=== PATIENT | male | born 1985 | race Caucasian/White ===

== ENCOUNTER 2016-08-14 18:39 | Emergency (ER) | payer SELFPAY ==
--- NOTE | 2016-08-14 18:49 | PDOC ---
Rapid Medical Evaluation Chief Complaint: Urinary Problem Time Seen by Provider: 08/14/16 18:47 Medical Evaluation: Allergies Allergy/AdvReac Type Severity Reaction Status Date / Time No Known Allergies Allergy Verified 08/14/16 18:47 08/14/16 18:48 I have performed a brief in-person evaluation of this patient. The patient presents with a chief complaint of:2 days difficulty urinating, lower abd pain ,urgency and frequency Pertinent physical exam findings:lower abd pain left side I have ordered the following:UA, The patient will proceed to the ED for further evaluation.
[2016-08-14 18:53] VITALS: BP 143/74; PULSE 74; TEMP 98.2; BMI 28.7
[2016-08-14 20:37] LABS: URINE APPEARANCE CLOUDY; URINE BILIRUBIN NEGATIVE (NEGATIVE); URINE BLOOD NEGATIVE (NEGATIVE); URINE COLOR YELLOW; URINE GLUCOSE (UA) NEGATIVE (NEGATIVE); URINE KETONE NEGATIVE (NEGATIVE); URINE LEUK ESTERASE NEGATIVE (NEGATIVE); URINE NITRITE NEGATIVE (NEGATIVE); URINE PROTEIN NEGATIVE (NEGATIVE); URINE UROBILINOGEN NEGATIVE E.U./dl (0.2-1.0)
--- NOTE | 2016-08-14 20:44 | PDOC ---
History of Present Illness - General Chief Complaint: Urinary Problem Stated Complaint: URINARY PROBLEM Time Seen by Provider: 08/14/16 18:47 - History of Present Illness Initial Comments: 08/14/16 20:41 CHIEF COMPLAINT: HISTORY OF PRESENT ILLNESS: No recent travel or sick contacts. PAST MEDICAL HISTORY: Denies past medical history FAMILY HISTORY: Denies SOCIAL HISTORY: Lives at home with ____. Occupation: . Denies tobacco, alcohol, illicit drug use. SURGICAL HISTORY: Denies ALLERGIES: No known drug allergies REVIEW OF SYSTEMS General/Constitutional: Denies fever or chills. Denies weakness, weight change. HEENT: Denies change in vision. Denies ear pain or discharge. Denies sore throat. Cardiovascular: Denies chest pain or shortness of breath. Respiratory: Denies cough, wheezing, or hemoptysis. Gastrointestinal: Denies nausea, vomiting, diarrhea or constipation. Denies rectal bleeding. Genitourinary: Denies dysuria, frequency, or change in urination. Musculoskeletal: Denies joint or muscle swelling or pain. Denies neck or back pain. Skin and breasts: Denies rash or easy bruising. Neurologic: Denies headache, vertigo, loss of consciousness, or loss of sensation. Psychiatric: Denies depression or anxiety. Endocrine: Denies increased thirst. Denies abnormal weight change. Hematologic/Lymphatic: Denies anemia, easy bleeding, or history of blood clots. Allergic/Immunologic: Denies hives or skin allergy. Denies latex allergy. PHYSICAL EXAM General Appearance: Well-appearing, appropriately dressed. No apparent distress , no intoxication. HEENT: EOMI, PERRLA, normal ENT inspection, normal voice, TMs normal, pharynx normal. No conjunctival pallor. No photophobia, scleral icterus. Neck: Supple. Trachea midline. No tenderness, rigidity, carotid bruit, stridor , lymphadenopathy, or thyromegaly. Respiratory/Chest: Lungs CTAB. No shortness of breath, chest tenderness, respiratory distress, accessory muscle use. No crackles, rales, rhonchi, stridor , wheezing, dullness Cardiovascular: RRR. S1, S2. No JVD, murmur, bradycardia, tachycardia. Vascular Pulses: Dorsalis-Pedis (R): 2+, Dorsalis-Pedis (L): 2+ Gastrointestinal/Abdominal: Normal bowel sounds. Abdomen soft, non-distended. No tenderness or rebound tenderness. No organomegaly, pulsatile mass, guarding , hernia, hepatomegaly, splenomegaly. Lymphatic: No adenopathy, tenderness. Musculoskeletal/Extremities: Normal inspection. FROM of all extremities, normal capillary refill. Pelvis Stable. No CVA tenderness. No tenderness to extremities, pedal edema, swelling, erythema or deformity. Integumentary: Appropriate color, dry, warm. No cyanosis, erythema, jaundice or rash Neurologic: paper machine back tender II-XII intact. Fully oriented, alert. Appropriate mood/affect. Motor strength 5/5. No appreciable EOM palsy, facial droop or sensory deficit. Past History - Past Medical History Allergies/Adverse Reactions: Allergies Allergy/AdvReac Type Severity Reaction Status Date / Time No Known Allergies Allergy Verified 08/14/16 18:47 Home Medications: Ambulatory Orders Ibuprofen 800 mg PO TID PRN #21 tablet 02/16/16 Omeprazole 20 mg PO DAILY #7 capsule. 02/16/16 GI Disorders: Yes (ACID REFLUX,GASTRITIS) - Surgical History Appendectomy: Yes - Psycho/Social/Smoking Cessation Hx Anxiety: No Suicidal Ideation: No Smoking History: Never smoked Have you smoked in the past 12 months: No Number of Cigarettes Smoked Daily: 3 Information on smoking cessation initiated: Yes 'Breaking Loose' booklet given: 08/14/16 Hx Alcohol Use: No Drug/Substance Use Hx: No Substance Use Type: None *Physical Exam - Vital Signs Last Vital Signs Temp Pulse Resp BP Pulse Ox 98.2 F 74 18 143/74 100 08/14/16 18:48 08/14/16 18:48 08/14/16 18:48 08/14/16 18:48 08/14/16 18:48 Medical Decision Making - Medical Decision Making 08/14/16 20:41 30 yo M with no PMH presents to fast track with urinary and bowel discomfort x 2 days s/p taking "cleansing drink." -UA, UCx, Ct/GC Advised patient to f/u with urology if symptoms persist. Advised patient of signs and symptoms for return to ER; patient verbalized understanding and agrees to plan. *DC/Admit/Observation/Transfer Diagnosis at time of Disposition: Suprapubic cramping - Discharge Dispostion Disposition: HOME Condition at time of disposition: Stable Admit: No - Referrals Referrals: Ezekiel Leon MD [Staff Physician] - - Patient Instructions Additional Instructions: Please call back in 3 days for results of your chlamydia and gonorrhea test. As discussed, if your symptoms persist past 2 more days, please follow up with the urologist. If you experience any fever, chills, nausea, vomiting, back pain , or any new or worsening symptoms, please return to the ER.
== END 2016-08-14 21:38 | disposition home or self-care (01) ==
LOC: JERFT 18:39
DX: R10.30 Lower abdominal pain, unspecified (principal)
CPT/HCPCS: 36415; 81003; 87086; 87491; 87591; 99281-25

== ENCOUNTER 2017-07-02 21:55 | Emergency (ER) | payer OTHER ==
[2017-07-02 22:01] VITALS: BP 158/85; PULSE 72; TEMP 98; BMI 28.7
--- NOTE | 2017-07-02 22:04 | PDOC ---
History of Present Illness - General Chief Complaint: Injury Stated Complaint: RIGHT HAND INJURY Time Seen by Provider: 07/02/17 22:02 Past History - Past Medical History Allergies/Adverse Reactions: Allergies Allergy/AdvReac Type Severity Reaction Status Date / Time No Known Allergies Allergy Verified 08/14/16 18:47 Home Medications: Ambulatory Orders Ibuprofen 800 mg PO TID PRN #21 tablet 02/16/16 Omeprazole 20 mg PO DAILY #7 capsule. 02/16/16 COPD: No GI Disorders: Yes (ACID REFLUX,GASTRITIS) - Surgical History Appendectomy: Yes - Suicide/Smoking/Psychosocial Hx Smoking History: Never smoked Have you smoked in the past 12 months: No Number of Cigarettes Smoked Daily: 3 Information on smoking cessation initiated: No 'Breaking Loose' booklet given: 08/14/16 Hx Alcohol Use: No Drug/Substance Use Hx: No Substance Use Type: None *Physical Exam - Vital Signs Last Vital Signs Temp Pulse Resp BP Pulse Ox 98 F 72 16 158/85 98 07/02/17 22:00 07/02/17 22:00 07/02/17 22:00 07/02/17 22:00 07/02/17 22:00 ED Treatment Course - RADIOLOGY Radiology Studies Ordered: Category Date Time Status HAND- RIGHT [RAD] Stat Radiology 07/02/17 22:03 Ordered
--- NOTE | 2017-07-02 22:25 | PDOC ---
History of Present Illness - General Chief Complaint: Injury Stated Complaint: RIGHT HAND INJURY Time Seen by Provider: 07/02/17 22:02 History Source: Patient - History of Present Illness Occurred: reports: other Upper Extremity Pain Location: right: 4th finger, 5th finger Past History - Past Medical History Allergies/Adverse Reactions: Allergies Allergy/AdvReac Type Severity Reaction Status Date / Time No Known Allergies Allergy Verified 08/14/16 18:47 Home Medications: Ambulatory Orders NK [No Known Home Medication] 07/02/17 COPD: No GI Disorders: Yes (ACID REFLUX,GASTRITIS) - Surgical History Appendectomy: Yes - Suicide/Smoking/Psychosocial Hx Smoking History: Never smoked Have you smoked in the past 12 months: No Number of Cigarettes Smoked Daily: 3 Information on smoking cessation initiated: No 'Breaking Loose' booklet given: 08/14/16 Hx Alcohol Use: No Drug/Substance Use Hx: No Substance Use Type: None Review of Systems - Review of Systems Constitutional: No: Chills, Fever Musculoskeletal: Yes: Joint Pain *Physical Exam - Vital Signs Last Vital Signs Temp Pulse Resp BP Pulse Ox 98 F 72 16 158/85 98 07/02/17 22:00 07/02/17 22:00 07/02/17 22:00 07/02/17 22:00 07/02/17 22:00 - Physical Exam General Appearance: Yes: Appropriately Dressed. No: Apparent Distress HEENT: positive: Normal Voice Neck: positive: Supple Respiratory/Chest: negative: Respiratory Distress Extremity: positive: Other (ecchymosis over dorsum of R 4th mcp, no swelling/ defromity, FROMI) Integumentary: positive: Dry, Warm Neurologic: positive: Fully Oriented, Alert, Normal Mood/Affect ED Treatment Course - RADIOLOGY Radiology Studies Ordered: Category Date Time Status HAND- RIGHT [RAD] Stat Radiology 07/02/17 22:03 Taken Medical Decision Making - Medical Decision Making 07/02/17 22:23 31-year-old male, no significant history, presenting with pain to right fourth and fifth metacarpal that started several days ago. States he slammed door on right hand 3 weeks ago, but was not having any pain until several days ago. Not taking anything for pain. Patient well-appearing and stable with minimal ecchymosis over the dorsal aspect of right fourth MCP, no significant swelling and no deformity. X-ray negative for fracture. DC with [id number] pain control as needed. Hand referral given *DC/Admit/Observation/Transfer Diagnosis at time of Disposition: Hand pain, right - Discharge Dispostion Disposition: HOME Condition at time of disposition: Good - Referrals Referrals: Colten Erazo MD [Staff Physician] - - Patient Instructions Additional Instructions: X-ray was negative for fracture. Take Motrin as needed for pain and follow-up with Dr. Erazo of orthopedics next week - Post Discharge Activity
== END 2017-07-02 22:34 | disposition home or self-care (01) ==
LOC: JERFT 21:55
DX: M79.641 Pain in right hand (principal); W23.0XXA Caught, crushed, jammed, or pinched between moving objects, initial encounter; Y93.89 Activity, other specified; Y92.89 Other specified places as the place of occurrence of the external cause; Y99.8 Other external cause status
CPT/HCPCS: 73130-TC-RT-FY; 99281-25

== ENCOUNTER 2017-12-20 22:23 | Emergency (ER) | payer OTHER ==
[2017-12-20 22:29] VITALS: BP 140/94; PULSE 88; TEMP 98; BMI 29.4
[2017-12-21] MEDS ORDERED: KETOROLAC TROMETHAMINE 60 MG/2 ML VIAL IM ONE (00:48)
--- NOTE | 2017-12-21 01:28 | PDOC ---
History of Present Illness - General Chief Complaint: Pain Stated Complaint: LT LEG PAIN/CONGESTION Time Seen by Provider: 12/21/17 00:31 - History of Present Illness Initial Comments: 12/21/17 01:22 A 2-year-old male without comorbidities presents for evaluation of anterior left thigh pain 3 days without any precipitating traumatic event. No lower back pain. No loss of bowel bladder function or saddle paresthesias. Also a chronic cough for the last 2 months he was treated with Zithromax and Tessalon Perles. No relief of symptoms. No other associated symptoms Past History - Past Medical History Allergies/Adverse Reactions: Allergies Allergy/AdvReac Type Severity Reaction Status Date / Time No Known Allergies Allergy Verified 12/20/17 22:29 Home Medications: Ambulatory Orders Albuterol Sulfate Inhaler - [Ventolin HFA Inhaler -] 1 - 2 inh PO Q4H PRN #1 inhaler 10/10/17 Benzonatate [Tessalon Pearls -] 100 mg PO TID PRN #14 capsule 10/10/17 Cetirizine HCl/Pseudoephedrine [Zyrtec-D Tablet] 1 each PO DAILY #30 tab.er.12h 12/21/17 Cyclobenzaprine HCl [Flexeril 10 mg] 10 mg PO HS PRN #10 tablet 12/21/17 Methylprednisolone [Medrol Dose Marques] 4 mg PO ASDIR #21 tablet 12/21/17 COPD: No GI Disorders: Yes (ACID REFLUX,GASTRITIS) - Surgical History Appendectomy: Yes - Suicide/Smoking/Psychosocial Hx Smoking History: Current some day smoker Have you smoked in the past 12 months: No Number of Cigarettes Smoked Daily: 3 Information on smoking cessation initiated: No 'Breaking Loose' booklet given: 08/14/16 Hx Alcohol Use: No Drug/Substance Use Hx: No Substance Use Type: None Review of Systems - Review of Systems Respiratory: Yes: Cough Musculoskeletal: Yes: See HPI All Other Systems: Reviewed and Negative *Physical Exam - Vital Signs Last Vital Signs Temp Pulse Resp BP Pulse Ox 98 F 88 18 140/94 98 12/20/17 22:25 12/20/17 22:25 12/20/17 22:25 12/20/17 22:25 12/20/17 22:25 - Physical Exam Comments: 12/21/17 01:23 HEAD: NC/AT EYES: Conjuntiva clear Ears: Canals and TM's normal NOSE: No d/c THROAT: Moist mucous membrances, oral pharanx clear, uvula midline NECK: Supple without adenopathy CARDIAC: S1 S2 LUNGS: CTA Full and Equal breath sounds ABDOMEN: Soft NT ND MS: Full ROM in all joints without edema NEUROLOGIC: No gross sensory or motor deficits, NVID SKIN: Normal color and temperature no lesions or rashes lumbar spine skin color and temperature are normal is no tenderness. Full range of motion. 5 strength in bilateral lower extremities without gross sensorimotor deficits negative straight leg raise test negative with negative femoral nerve stretch test. Thighs and calves are soft and nontender is neurovascular intact ED Treatment Course - RADIOLOGY Radiology Studies Ordered: Category Date Time Status CHEST PA & LAT [RAD] Stat Radiology 12/21/17 00:49 Taken - Medications Given in the ED: ED Medications Discontinued Medications Generic Name Dose Route Start Last Admin Trade Name Freq PRN Reason Stop Dose Admin Ketorolac Tromethamine 60 mg 12/21/17 00:48 12/21/17 01:00 Toradol Injection - IM 12/21/17 00:49 60 mg ONCE ONE Administration Medical Decision Making - Medical Decision Making Chest x-ray is negative, poor respiratory effort. Most likely ALLERGIC cough I will start him on Zyrtec D. Steroids for the femoral nerve radicular symptoms. Pain in the emergency room relieved with Toradol. Plan is to DC him home with spine surgery follow-up Medrol Dosepak and Flexeril as well as Zyrtec-D for his ALLERGIC cough. 12/21/17 01:24 *DC/Admit/Observation/Transfer Diagnosis at time of Disposition: Lumbar radiculopathy, Seasonal allergies - Discharge Dispostion Disposition: HOME Condition at time of disposition: Stable Decision to Admit order: No - Referrals Referrals: Trey Ramirez [Non Staff, Medical] - Colten Navarro MD [Staff Physician] - - Patient Instructions Printed Discharge Instructions: Lumbar Radiculopathy, DI for Lumbar Radiculopathy, Cough Additional Instructions: Cough you are experiencing I believe is an ALLERGIC cough I have prescribed P with antihistamine with decongestant which should help her symptoms. The leg pain originates from her lower back. I prescribed he was steroid pack and a muscle relaxer which should help her symptoms. Feel lower back please follow-up with spine surgery for further evaluation and treatment options and I also have given you an internal medicine doctor which will be with her cough. Return to the emergency room should symptoms worsen or go unresolved. Do not take any antiinflamatory medication while on the steroids, no advil, motrin, or alieve. Only Tylenol as directed for pain. - Post Discharge Activity
== END 2017-12-21 01:35 | disposition home or self-care (01) ==
LOC: JER 22:23
PROC: 3E0333Z Introduction of Anti-inflammatory into Peripheral Vein, Percutaneous Approach (ICD-10-PCS; principal; 2017-12-20)
DX: M54.16 Radiculopathy, lumbar region (principal); J30.2 Other seasonal allergic rhinitis
CPT/HCPCS: 71046-TC-FY; 99282-25

== ENCOUNTER 2018-07-10 20:45 | Emergency (ER) | payer OTHER ==
[2018-07-10 20:56] VITALS: BP 147/94; PULSE 66; TEMP 98; BMI 28.4
--- NOTE | 2018-07-10 20:57 | PDOC ---
Rapid Medical Evaluation Chief Complaint: Chest Pain Time Seen by Provider: 07/10/18 20:54 Medical Evaluation: Allergies Allergy/AdvReac Type Severity Reaction Status Date / Time No Known Allergies Allergy Verified 12/20/17 22:29 07/10/18 20:54 I have performed a brief in-person evaluation of this patient. The patient presents with a chief complaint of: CP and facial pain. H/o ? GERD Pertinent physical exam findings:Unremarkable I have ordered the following:EKG The patient will proceed to the ED for further evaluation 07/10/18 20:56 Discharge Disposition - Diagnosis Chest pain Qualifiers: Chest pain type: unspecified Qualified Code(s): R07.9 - Chest pain, unspecified - Referrals - Patient Instructions - Post Discharge Activity
--- NOTE | 2018-07-10 21:18 | PDOC ---
History of Present Illness - General Chief Complaint: Chest Pain Stated Complaint: SORENESS IN FACE/chest pain Time Seen by Provider: 07/10/18 20:54 - History of Present Illness Initial Comments: 07/10/18 21:18 32-year-old male without comorbidities presents for evaluation of intermittent chest pain for the last 10 days with associated itchy eyes sinus pressure nasal congestion and cough no fever or other constitutional symptoms. Past History - Past Medical History Allergies/Adverse Reactions: Allergies Allergy/AdvReac Type Severity Reaction Status Date / Time No Known Allergies Allergy Verified 07/10/18 20:56 Home Medications: Ambulatory Orders Albuterol Sulfate Inhaler - [Ventolin HFA Inhaler -] 1 - 2 inh PO Q4H PRN #1 inhaler 10/10/17 Benzonatate [Tessalon Pearls -] 100 mg PO TID PRN #14 capsule 10/10/17 Cetirizine HCl/Pseudoephedrine [Zyrtec-D Tablet] 1 each PO DAILY #30 tab.er.12h 12/21/17 Cyclobenzaprine HCl [Flexeril 10 mg] 10 mg PO HS PRN #10 tablet 12/21/17 Methylprednisolone [Medrol Dose Marques] 4 mg PO ASDIR #21 tablet 12/21/17 Amox-Tr/K Cl [Augmentin - 875Mg Tablet] 1 tab PO BID #20 tablet 07/10/18 Budesonide [Rhinocort Allergy] 1 spray NS ONCE #1 spray.pump 07/10/18 Cetirizine HCl/Pseudoephedrine [Zyrtec-D Tablet] 1 each PO DAILY #30 tab.er.12h 07/10/18 Olopatadine HCl [Pataday] 1 drop OU DAILY #1 bottle 07/10/18 COPD: No GI Disorders: No - Surgical History Appendectomy: Yes - Suicide/Smoking/Psychosocial Hx Smoking History: Unknown if ever smoked Have you smoked in the past 12 months: No Number of Cigarettes Smoked Daily: 3 Information on smoking cessation initiated: No 'Breaking Loose' booklet given: 08/14/16 Hx Alcohol Use: No Drug/Substance Use Hx: No Substance Use Type: None Review of Systems - Review of Systems Constitutional: No: Fever HEENTM: Yes: Tearing, Nose Congestion. No: Eye Pain, Blurred Vision, Recent change in vision Respiratory: Yes: Cough *Physical Exam - Vital Signs Last Vital Signs Temp Pulse Resp BP Pulse Ox 98.0 F 66 16 147/94 97 07/10/18 20:53 07/10/18 20:53 07/10/18 20:53 07/10/18 20:53 07/10/18 20:53 - Physical Exam Comments: 07/10/18 21:16 HEAD: NC/AT end of frontal and maxillary sinuses EYES: Conjuntiva lightly injected Ears: Canals and TM's normal NOSE: Active turbinates clear discharge THROAT: Moist mucous membrances, oral pharanx clear, uvula midline NECK: Supple without adenopathy CARDIAC: S1 S2 LUNGS: CTA Full and Equal breath sounds ABDOMEN: Soft NT ND MS: Full ROM in all joints without edema NEUROLOGIC: No gross sensory or motor deficits, NVID SKIN: Normal color and temperature no lesions or rashes Medical Decision Making - Medical Decision Making 07/10/18 21:16 Is a 32-year-old male with a history of present illness consistent with a bacterial sinusitis. He also has symptoms of ALLERGIC rhinitis and conjunctivitis. I will treat him for both and have him follow-up with internal medicine as well as ENT. CP is intermittent and began when symptoms appeared, I do not believe this is cardiac CP 07/10/18 21:17 *DC/Admit/Observation/Transfer Diagnosis at time of Disposition: Sinusitis, Seasonal allergic conjunctivitis, Seasonal allergic rhinitis Chest pain Qualifiers: Chest pain type: unspecified Qualified Code(s): R07.9 - Chest pain, unspecified - Discharge Dispostion Disposition: HOME Condition at time of disposition: Stable Decision to Admit order: No - Prescriptions Prescriptions: Amox-Tr/K Cl [Augmentin - 875Mg Tablet] 1 tab PO BID #20 tablet Budesonide [Rhinocort Allergy] 1 spray NS ONCE #1 spray.pump Cetirizine HCl/Pseudoephedrine [Zyrtec-D Tablet] 1 each PO DAILY #30 tab.er.12h Olopatadine HCl [Pataday] 1 drop OU DAILY #1 bottle - Referrals Referrals: Mira Gonzales MD [Staff Physician] - Edy Garner MD [Staff Physician] - - Patient Instructions Printed Discharge Instructions: How to Instill Eye Drops, DI for Eye Allergic Reaction, DI for Chest Pain, DI for Sinusitis, Sinusitis, Allergic Rhinitis, DI for Allergic Rhinitis Additional Instructions: Return to the emergency room for worsening symptoms. Your being treated for ALLERGIC rhinitis and conjunctivitis as well as a sinus infection. Follow-up with internal medicine in one to 2 days for further evaluation and treatment options as well as ear nose and throat doctor. Please take the medication as directed and finish the entire course of antibiotics as directed. - Post Discharge Activity
--- NOTE | 2018-07-11 13:40 | EKG ---
Test Reason : Blood Pressure : / mmHG Vent. Rate : 059 BPM Atrial Rate : 059 BPM P-R Int : 132 ms QRS Dur : 102 ms QT Int : 414 ms P-R-T Axes : 013 054 016 degrees QTc Int : 409 ms SINUS BRADYCARDIA WITH SINUS ARRHYTHMIA OTHERWISE NORMAL ECG WHEN COMPARED WITH ECG OF 01-MAY-2007 03:44, NO SIGNIFICANT CHANGE WAS FOUND Confirmed by ITA YOUNG MD ([id number]) on 07/11/2018 1:39:31 PM Referred By: Confirmed By:ITA YOUNG MD
== END 2018-07-10 21:36 | disposition home or self-care (01) ==
LOC: JERFT 20:45
DX: J01.90 Acute sinusitis, unspecified (principal); J30.2 Other seasonal allergic rhinitis
CPT/HCPCS: 93005; 93010; 99281-25

== ENCOUNTER 2019-05-07 18:37 | Emergency (ER) | payer OTHER ==
[2019-05-07 18:54] VITALS: TEMP 98; BMI 29.5
--- NOTE | 2019-05-07 18:54 | PDOC ---
Rapid Medical Evaluation Chief Complaint: Pain, Acute Time Seen by Provider: 05/07/19 18:52 Medical Evaluation: Allergies Allergy/AdvReac Type Severity Reaction Status Date / Time No Known Allergies Allergy Verified 05/07/19 18:51 05/07/19 18:52 I have performed a brief in-person evaluation of this patient. The patient presents with a chief complaint of:CP, worse on deep inspiration. No sob or diaphoresis. No RF for dvt/PE. Occasional smoker, denies illicit drug use. Might have had similar CP in past and was seen in an ER but does not remember dx Pertinent physical exam findings:stable and well chung I have ordered the following:ekg/cxr The patient will proceed to the ED for further evaluation. Discharge Disposition - Diagnosis Chest pain Qualifiers: Chest pain type: unspecified Qualified Code(s): R07.9 - Chest pain, unspecified - Referrals - Patient Instructions - Post Discharge Activity
--- NOTE | 2019-05-07 19:30 | PDOC ---
History of Present Illness - General Chief Complaint: Pain, Acute Stated Complaint: PAIN Time Seen by Provider: 05/07/19 18:52 History Source: Patient Exam Limitations: No Limitations - History of Present Illness Initial Comments: 05/07/19 19:19 Patient is a 33-year-old male with history of appendectomy came to the ER for complaints of right lower quadrant abdominal pain since last night. Pain is like a continuous, crampy, 6.5/10, which radiates to the left flank. States he had the same pain about a month ago in the left side, but was not as severe. He went to [facility] for evaluation and had an ultrasound done for stones, which patient states was unremarkable. Patient has no history of kidney stones, however mother has history of kidney stones. Denies nausea, vomiting, fever, chills, dysuria, hematuria, no testicular pain. PMHX: as above PSOCHX: neg etoh, drug, cig ALL: NKDA GENERAL/CONSTITUTIONAL: [No fever or chills. No weakness. No weight change.] HEAD, EYES, EARS, NOSE AND THROAT: [No change in vision. No ear pain or discharge. No sore throat.] CARDIOVASCULAR: [No chest pain or shortness of breath.] RESPIRATORY: [No cough, wheezing, or hemoptysis.] GASTROINTESTINAL: [No nausea, vomiting, diarrhea or constipation. No rectal bleeding.] GENITOURINARY: [No dysuria, frequency, or change in urination.] MUSCULOSKELETAL: [No joint or muscle swelling or pain. No neck or back pain.] SKIN AND BREASTS: [No rash or easy bruising.] NEUROLOGIC: [No headache, vertigo, loss of consciousness, or loss of sensation.] PSYCHIATRIC: [No depression (+) anxiety.] ENDOCRINE: [No increased thirst. No abnormal weight change.] HEMATOLOGIC/LYMPHATIC: [No anemia, easy bleeding, or history of blood clots.] ALLERGIC/IMMUNOLOGIC: [No hives or skin allergy. No latex allergy.] GENERAL: [The patient is awake, alert, and fully oriented, in no acute distress. ] HEAD: [Normal with no signs of trauma.] EYES: [Pupils equal, round and reactive to light, extraocular movements intact, sclera anicteric, conjunctiva clear.] ENT: [Ears normal, nares patent, oropharynx clear without exudates. Moist mucous membranes.] NECK: [Normal range of motion, supple without lymphadenopathy, JVD, or masses.] LUNGS: [Breath sounds equal, clear to auscultation bilaterally. No wheezes, and no crackles.] HEART: [Regular rate and rhythm, normal S1 and S2 without murmur, rub.] ABDOMEN: [Soft, tenderness RLQ, No CVAT, normoactive bowel sounds. No guarding , no rebound. No masses.] EXTREMITIES: [Normal range of motion, no edema. No clubbing or cyanosis. No cords, erythema, or tenderness.] NEUROLOGICAL: [Cranial nerves II through XII grossly intact. Normal speech, normal gait.] PSYCH: [Normal mood, normal affect.] SKIN: [Warm, Dry, normal turgor, no rashes or lesions noted.] Past History - Past Medical History Allergies/Adverse Reactions: Allergies Allergy/AdvReac Type Severity Reaction Status Date / Time No Known Allergies Allergy Verified 05/07/19 18:51 Home Medications: Ambulatory Orders NK [No Known Home Medication] 05/07/19 COPD: No GI Disorders: No - Surgical History Appendectomy: Yes - Psycho Social/Smoking Cessation Hx Smoking History: Never smoked Have you smoked in the past 12 months: No Number of Cigarettes Smoked Daily: 3 Information on smoking cessation initiated: No 'Breaking Loose' booklet given: 08/14/16 Hx Alcohol Use: No Drug/Substance Use Hx: No Substance Use Type: None *Physical Exam - Vital Signs Last Vital Signs Temp Pulse Resp BP Pulse Ox 98 F 56 L 18 154/92 97 05/07/19 18:52 05/07/19 18:52 05/07/19 18:52 05/07/19 18:52 05/07/19 18:52 ED Treatment Course - LABORATORY CBC & Chemistry Diagram: 05/07/19 17:45 05/07/19 17:45 Medical Decision Making - Medical Decision Making 05/07/19 19:19 Patient is a 33-year-old male with history of appendectomy came to the ER for complaints of right lower quadrant abdominal pain since last night. Pain is like a continuous, crampy, 6.5/10, which radiates to the left flank. States he had the same pain about a month ago in the left side, but was not as severe. He went to [facility] for evaluation and had an ultrasound done for stones, which patient states was unremarkable. Patient has no history of kidney stones, however mother has history of kidney stones. Denies nausea, vomiting, fever, chills, dysuria, hematuria, no testicular pain. EKG: SB at 54, normal axis deviation, LVH, no ST-T wave changes 05/07/19 19:31 Labs reviewed no acute findings 05/07/19 21:55 CT scan negative for kidney stones normal appendix. I discussed the physical exam findings, ancillary test results and final diagnoses with the patient. I answered all of the patient's questions. The patient was satisfied with the care received and felt comfortable with the discharge plan and treatment plan. The Patient agrees to follow up with the primary care physician within 24-72 hours. Copy of the CAT scan given to the patient. Discharge - Discharge Information Problems reviewed: Yes Clinical Impression/Diagnosis: Abdominal pain Qualifiers: Abdominal location: right lower quadrant Qualified Code(s): R10.31 - Right lower quadrant pain Condition: Stable Disposition: HOME - Follow up/Referral Referrals: Edgar James MD [Staff Physician] - - Patient Discharge Instructions Patient Printed Discharge Instructions: DI for Abdominal Pain-Adult Additional Instructions: Your Discharge Instructions: You must call primary care physician within 24 hours to arrange follow-up. Return to the Emergency Department with any new, persistent or worsening symptoms, for fever, chills, SOB, dizziness or any other concerning changes that may occur. You have been provided with a copy of your CAT scan which you must present to your primary care doctor. - Post Discharge Activity
--- NOTE | 2019-05-07 19:49 | PDOC ---
*Physical Exam - Vital Signs Last Vital Signs Temp Pulse Resp BP Pulse Ox 98 F 56 L 18 154/92 97 05/07/19 18:52 05/07/19 18:52 05/07/19 18:52 05/07/19 18:52 05/07/19 18:52 Medical Decision Making - Medical Decision Making 05/07/19 19:48 33 yo male sp appendectomy >3 years ago here w/ R flank pain and RLQ pin no testicular pain EKG WNL Appears well Abd soft NTND +bS No Cva tenerness Plan Will eval for renal colic vs pyelo vs less likely sbo CTAP UA Omar ncontrol More likley w/ msk pain vs stone I have personally overseen this case with provider and agree with their note and plan of care Discharge - Discharge Information Problems reviewed: Yes Clinical Impression/Diagnosis: Chest pain Qualifiers: Chest pain type: unspecified Qualified Code(s): R07.9 - Chest pain, unspecified - Follow up/Referral - Patient Discharge Instructions - Post Discharge Activity
[2019-05-07 20:20] LABS: BASO % 0.4 % (0-2.0); EOS % 1.9 % (0-4.5); HEMATOCRIT 44.7 % (35.4-49); LYMPH % 26.2 % (8-40); MCH 31.4 pg (25.7-33.7); MCHC 33.5 g/dl (32.0-35.9); MEAN CELL VOLUME 93.8 fl (80-96); MEAN PLT VOLUME 9.5 fl (7.5-11.1); MONO % 10.3 % (3.8-10.2); NEUT % 61.2 % (42.8-82.8); PLATELET COUNT 261 K/MM3 (134-434); RBC 4.77 M/mm3 (4.00-5.60); RDW 14.2 % (11.9-15.9); WHITE BLOOD COUNT 9.2 K/mm3 (4.0-10.0)
[2019-05-07 20:39] LABS: BLOOD UREA NITROGEN 15.3 mg/dL (7-18); CALCIUM 9.7 mg/dL (8.5-10.1); POTASSIUM 4.1 mmol/L (3.5-5.1)
[2019-05-07 21:09] LABS: PH,URINE 7.5 (5.0-8.0); URINE APPEARANCE CLEAR; URINE BILIRUBIN NEGATIVE (NEGATIVE); URINE COLOR YELLOW; URINE GLUCOSE (UA) NEGATIVE (NEGATIVE); URINE KETONE NEGATIVE (NEGATIVE); URINE LEUK ESTERASE NEGATIVE (NEGATIVE); URINE NITRITE NEGATIVE (NEGATIVE); URINE PROTEIN NEGATIVE (NEGATIVE)
[2019-05-07 23:25] VITALS: BP 142/89; PULSE 72
--- NOTE | 2019-05-08 11:53 | EKG ---
Test Reason : Blood Pressure : / mmHG Vent. Rate : 054 BPM Atrial Rate : 054 BPM P-R Int : 146 ms QRS Dur : 092 ms QT Int : 440 ms P-R-T Axes : 010 041 003 degrees QTc Int : 417 ms SINUS BRADYCARDIA MINIMAL VOLTAGE CRITERIA FOR LVH, MAY BE NORMAL VARIANT BORDERLINE ECG WHEN COMPARED WITH ECG OF 10-JUL-2018 20:41, NO SIGNIFICANT CHANGE WAS FOUND Confirmed by HECTOR MATHEW, ITA ([id number]) on 05/08/2019 11:53:39 AM Referred By: Confirmed By:ITA YOUNG MD
== END 2019-05-07 22:20 | disposition home or self-care (01) ==
LOC: JER 18:37
DX: R10.31 Right lower quadrant pain (principal)
CPT/HCPCS: 36415; 71046-TC-FY; 74176-TC; 80048; 81003; 85025; 87086; 93005; 93010; 99285-25

== ENCOUNTER 2020-06-28 21:45 | Emergency (ER) | payer SELFPAY ==
[2020-06-28 22:09] VITALS: BP 156/92; PULSE 101; TEMP 98.5; BMI 31.5
[2020-06-28] MEDS ORDERED: IBUPROFEN 600 MG TABLET (FP) PO ONE ×2 (22:27→22:41)
== END 2020-06-28 23:18 | disposition home or self-care (01) ==
LOC: JER 21:45
DX: M79.671 Pain in right foot (principal); M72.2 Plantar fascial fibromatosis
CPT/HCPCS: 73630-TC-RT-FY; 99283-25

== ENCOUNTER 2020-11-11 19:19 | Emergency (ER) | payer SELFPAY ==
[2020-11-11 19:34] VITALS: BP 129/86; PULSE 79; TEMP 98.4; BMI 32.8
[2020-11-11] MEDS ORDERED: KETOROLAC TROMETHAMINE 30 MG/1 ML VIAL IM ONE (19:56)
[2020-11-11] MEDS ORDERED: KETOROLAC TROMETHAMINE 30 MG/1 ML VIAL ONE (20:07)
== END 2020-11-11 20:20 | disposition home or self-care (01) ==
LOC: JERFT 19:19
PROC: 3E023GC Introduction of Other Therapeutic Substance into Muscle, Percutaneous Approach (ICD-10-PCS; principal; 2020-11-11)
DX: M54.5 Low back pain (principal)
CPT/HCPCS: 99284-25

== ENCOUNTER 2021-01-21 19:29 | Emergency (ER) | payer SELFPAY ==
[2021-01-21 19:35] VITALS: BP 142/96; PULSE 79; TEMP 97; BMI 33.0
== END 2021-01-21 20:55 | disposition home or self-care (01) ==
LOC: JERFT 19:29 → JER 19:29 → JERFT 20:55
DX: S46.911A Strain of unspecified muscle, fascia and tendon at shoulder and upper arm level, right arm, initial encounter (principal); W19.XXXA Unspecified fall, initial encounter
CPT/HCPCS: 73030-TC-RT-FY; 99283-25

== ENCOUNTER 2021-07-04 16:28 | Emergency (ER) | payer SELFPAY ==
[2021-07-04 16:45] VITALS: BP 153/80; PULSE 85; TEMP 98.1; BMI 33.0
== END 2021-07-04 18:07 | disposition home or self-care (01) ==
LOC: JERFT 16:28
DX: K64.9 Unspecified hemorrhoids (principal)
CPT/HCPCS: 36415; 82272; 99283-25

== ENCOUNTER 2021-09-13 21:36 | Emergency (ER) | payer SELFPAY ==
[2021-09-13 22:22] VITALS: BP 139/84; PULSE 75; TEMP 97.9; BMI 33.0
[2021-09-14] MEDS ORDERED: KETOROLAC TROMETHAMINE 30 MG/1 ML VIAL IM ONE (00:52)
[2021-09-14] MEDS ORDERED: LIDOCAINE 5% TOPICAL PATCH TP ONE (00:52)
[2021-09-14] MEDS ORDERED: diazePAM 5 MG TABLET PO ONE (00:52)
[2021-09-14] MEDS ORDERED: LIDOCAINE 5% TOPICAL PATCH ONE (01:04)
[2021-09-14] MEDS ORDERED: KETOROLAC TROMETHAMINE 30 MG/1 ML VIAL ONE (01:04)
[2021-09-14] MEDS ORDERED: diazePAM 5 MG TABLET ONE (01:04)
[2021-09-14] MEDS ORDERED: LIDOCAINE PATCH REMOVAL MC SCH (22:00)
== END 2021-09-14 02:01 | disposition home or self-care (01) ==
LOC: JERFT 21:36 → JER 21:36
PROC: 3E0233Z Introduction of Anti-inflammatory into Muscle, Percutaneous Approach (ICD-10-PCS; principal; 2021-09-13)
DX: M54.50 Low back pain, unspecified (principal)
CPT/HCPCS: 99284-25

== ENCOUNTER 2022-01-29 22:14 | Emergency (ER) | payer BC ==
[2022-01-29 22:46] VITALS: BP 144/85; PULSE 87; RESP 20; TEMP 97.6; BMI 33.0
[2022-01-29] MEDS ORDERED: PSEUDOEPHEDRINE HCL 60 MG TABLET PO ONE (23:49)
[2022-01-30] MEDS ORDERED: DEXAMETHASONE SOD PHOSPHATE 10 MG/1 ML VIAL IM ONE (00:15)
[2022-01-30] MEDS ORDERED: PSEUDOEPHEDRINE HCL 60 MG TABLET ONE (00:17)
[2022-01-30] MEDS ORDERED: DEXAMETHASONE SOD PHOSPHATE 10 MG/1 ML VIAL ONE (00:17)
[2022-01-30] MEDS ORDERED: ALBUTEROL SO4 2.5/IPRATROPIUM 0.5 INH SOL 3 ML VIAL.NEB. NEB ONE (00:21)
[2022-01-30] MEDS: ALBUTEROL SO4 2.5/IPRATROPIUM 0.5 INH SOL 3 ML VIAL.NEB. NEB SCH ×4 (00:26→00:59)
== END 2022-01-30 01:27 | disposition home or self-care (01) ==
LOC: JERFT 22:14 → JER 22:14 → JERFT 01-30 01:27
PROC: 3E023NZ Introduction of Analgesics, Hypnotics, Sedatives into Muscle, Percutaneous Approach (ICD-10-PCS; principal; 2022-01-29)
PROC: 3E0F7GC Introduction of Other Therapeutic Substance into Respiratory Tract, Via Natural or Artificial Opening (ICD-10-PCS; 2022-01-29)
DX: J40 Bronchitis, not specified as acute or chronic (principal)
CPT/HCPCS: 0241U-QW; 71046-TC-FY; 99284-25; J1100

== ENCOUNTER 2022-05-17 20:12 | Emergency (ER) | payer BC ==
[2022-05-17 20:24] VITALS: BP 156/93; PULSE 94; RESP 18; TEMP 97.8; BMI 34.4
[2022-05-17] MEDS ORDERED: LIDOCAINE 5% TOPICAL PATCH TP ONE (20:38)
[2022-05-17] MEDS ORDERED: KETOROLAC TROMETHAMINE 30 MG/1 ML VIAL IM ONE (20:38)
[2022-05-17] MEDS ORDERED: CYCLOBENZAPRINE HCL 10 MG TABLET (FP) PO ONE (20:38)
[2022-05-17] MEDS ORDERED: ACETAMINOPHEN 500 MG TABLET (FP) PO ONE (20:38)
[2022-05-17] MEDS ORDERED: CYCLOBENZAPRINE HCL 10 MG TABLET (FP) ONE (20:40)
[2022-05-17] MEDS ORDERED: LIDOCAINE 5% TOPICAL PATCH ONE (20:40)
[2022-05-17] MEDS ORDERED: ACETAMINOPHEN 500 MG TABLET (FP) ONE (20:41)
[2022-05-17] MEDS ORDERED: KETOROLAC TROMETHAMINE 30 MG/1 ML VIAL ONE (20:41)
[2022-05-17] MEDS ORDERED: FAMOTIDINE 20 MG TABLET ONE (21:54)
[2022-05-17] MEDS ORDERED: LIDOCAINE PATCH REMOVAL MC SCH (22:00)
== END 2022-05-17 21:04 | disposition home or self-care (01) ==
LOC: JERFT 20:12 → JER 20:12 → JERFT 21:04
PROC: 3E0233Z Introduction of Anti-inflammatory into Muscle, Percutaneous Approach (ICD-10-PCS; principal; 2022-05-17)
DX: M54.50 Low back pain, unspecified (principal); G89.11 Acute pain due to trauma; W01.0XXA Fall on same level from slipping, tripping and stumbling without subsequent striking against object, initial encounter; Y92.008 Other place in unspecified non-institutional (private) residence as the place of occurrence of the external cause
CPT/HCPCS: 72100-TC-FY; 99284-25

== ENCOUNTER 2022-06-19 06:24 | Emergency (ER) | payer BC ==
[2022-06-19 06:42] VITALS: BMI 34.4
[2022-06-19] MEDS ORDERED: KETOROLAC TROMETHAMINE 15 MG/ML VIAL IM ONE (07:39)
[2022-06-19] MEDS ORDERED: ACETAMINOPHEN 500 MG TABLET (FP) PO ONE (07:39)
[2022-06-19] MEDS ORDERED: ACETAMINOPHEN 500 MG TABLET (FP) ONE (07:46)
[2022-06-19] MEDS ORDERED: KETOROLAC TROMETHAMINE 15 MG/ML VIAL ONE (07:46)
[2022-06-19 09:21] VITALS: BP 148/81; PULSE 78; RESP 16; TEMP 97.9
== END 2022-06-19 09:22 | disposition home or self-care (01) ==
LOC: JER 06:24
DX: M79.671 Pain in right foot (principal); W18.40XA Slipping, tripping and stumbling without falling, unspecified, initial encounter; X50.1XXA Overexertion from prolonged static or awkward postures, initial encounter; Y93.01 Activity, walking, marching and hiking; Y92.480 Sidewalk as the place of occurrence of the external cause
CPT/HCPCS: 73610-TC-RT-FY; 73630-TC-RT-FY; 99283-25

== ENCOUNTER 2022-09-18 11:45 | Emergency (ER) | payer BC ==
[2022-09-18 11:53] VITALS: BMI 33.0
[2022-09-18] MEDS ORDERED: ACETAMINOPHEN 1000 MG/100 ML BAG IVPB ONE (12:41)
[2022-09-18] MEDS ORDERED: ACETAMINOPHEN INJECTION 100 ML IVPB ONE (12:49)
[2022-09-18 13:28] LABS: POTASSIUM 3.7 mmol/L (3.5-5.1)
[2022-09-18 13:30] LABS: ALBUMIN 3.6 g/dl (3.4-5.0); CALCIUM 9.2 mg/dL (8.5-10.1)
[2022-09-18 13:33] LABS: CREATININE 0.9 mg/dL (0.55-1.3)
[2022-09-18 13:35] LABS: BILIRUBIN,TOTAL 0.3 mg/dL (0.2-1); TOT PROT 7.2 g/dl (6.4-8.2)
[2022-09-18 13:39] LABS: BASO % 0.4 % (0-2.0); HEMOGLOBIN 13.3 GM/dL (11.7-16.9); LYMPH % 20.6 % (8-40); MCH 30.5 pg (25.7-33.7); MCHC 33.2 g/dl (32.0-35.9); MEAN CELL VOLUME 91.9 fl (80-96); MEAN PLT VOLUME 9.8 fl (7.5-11.1); MONO % 11.7 % (3.8-10.2); NEUT % 65.3 % (42.8-82.8); PLATELET COUNT 212 10^3/uL (134-434); RBC 4.36 M/mm3 (4.00-5.60); WHITE BLOOD COUNT 7.3 K/mm3 (4.0-10.0)
[2022-09-18 16:32] VITALS: BP 143/85; PULSE 79; RESP 19; TEMP 98
== END 2022-09-18 16:35 | disposition home or self-care (01) ==
LOC: JER 11:45
PROC: 3E033NZ Introduction of Analgesics, Hypnotics, Sedatives into Peripheral Vein, Percutaneous Approach (ICD-10-PCS; principal; 2022-09-18)
DX: R07.89 Other chest pain (principal); R06.02 Shortness of breath; R07.2 Precordial pain; R06.09 Other forms of dyspnea; M79.10 Myalgia, unspecified site; R10.31 Right lower quadrant pain; R53.1 Weakness; Z20.822 Contact with and (suspected) exposure to COVID-19
CPT/HCPCS: 0241U-QW; 36415; 71046-TC-FY; 71275-TC; 80053; 84484; 85025; 85379; 93005; 93010; 99285-25; Q9967

== ENCOUNTER 2023-01-25 11:49 | Emergency (ER) | payer SELFPAY ==
[2023-01-25 12:06] VITALS: BP 147/87; PULSE 82; RESP 18; TEMP 98.1; BMI 35.2
== END 2023-01-25 14:09 | disposition home or self-care (01) ==
LOC: JERFT 11:49
DX: R05.9 Cough, unspecified (principal); R09.81 Nasal congestion; R53.83 Other fatigue; B97.4 Respiratory syncytial virus as the cause of diseases classified elsewhere; R07.2 Precordial pain; Z20.822 Contact with and (suspected) exposure to COVID-19
CPT/HCPCS: 0241U-QW; 71046-TC-FY; 93005; 93010; 99285-25

== ENCOUNTER 2023-04-02 09:19 | Emergency (ER) | payer OTHER ==
[2023-04-02 09:25] VITALS: BP 127/69; PULSE 92; RESP 18; TEMP 98.7; BMI 35.6
[2023-04-02] MEDS ORDERED: ACETAMINOPHEN 500 MG TABLET (FP) PO ONE (09:56)
[2023-04-02] MEDS ORDERED: ACETAMINOPHEN 500 MG TABLET (FP) ONE (10:00)
== END 2023-04-02 10:41 | disposition home or self-care (01) ==
LOC: JERFT 09:19
DX: J02.9 Acute pharyngitis, unspecified (principal); R53.1 Weakness; U07.1 COVID-19
CPT/HCPCS: 0241U-QW; 99283-25

== ENCOUNTER 2024-10-10 18:47 | Emergency (ER) | payer OTHER ==
[2024-10-10 18:53] VITALS: BP 132/82; PULSE 84; RESP 18; TEMP 98.2; BMI 33.4
[2024-10-10] MEDS ORDERED: NAPROXEN 500 MG TABLET ONE (19:36)
[2024-10-10] MEDS: NAPROXEN 500 MG TABLET PO ONE (19:40)
== END 2024-10-10 19:50 | disposition home or self-care (01) ==
LOC: JERFT 18:47
DX: M25.512 Pain in left shoulder (principal)
CPT/HCPCS: 99283-25